=== PATIENT | male | born 1985 ===

== ENCOUNTER 2021-04-01 08:18 | Outpatient (REF) | payer OTHER, SELFPAY ==
--- NOTE | ~2021-04-01 | XR_ITS ---
EXAMINATION: XR HAND, BILATERAL XR PELVIS XR LUMBAR SPINE CLINICAL INFORMATION: Bilateral hand pain, low back pain. COMPARISON: None TECHNIQUE: 3 views each hand. AP pelvis 1 view. Lumbar spine 3 views. FINDINGS: Right Hand: The IP, MCP and CMC joints are maintained normal. Minimal periarticular spurring with loss of joint space DIP joint 5th digit. No bony erosive changes, fracture or soft tissue swelling seen. Left Hand: There is mild periarticular spurring DIP joint 5th digit with minimal loss of joint space. Rest of the IP, MCP and CMC joints are normal. There is no soft tissue swelling seen. AP Pelvis: There is normal symmetry of bilateral SI joints and hip joints. No visible acute fracture, dislocation or lytic process seen. The soft tissues are normal. Lumbar Spine: There is maintained lumbar lordosis. The vertebral heights, alignment and disc heights are normal. No visible acute fracture, dislocation or lytic process seen. The soft tissues are normal. XR/XR hand RT min 3V IMPRESSION: Unremarkable lumbar spine exam. Unremarkable AP pelvis exam. 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
--- NOTE | ~2021-04-01 | XR_ITS ---
EXAMINATION: XR HAND, BILATERAL XR PELVIS XR LUMBAR SPINE CLINICAL INFORMATION: Bilateral hand pain, low back pain. COMPARISON: None TECHNIQUE: 3 views each hand. AP pelvis 1 view. Lumbar spine 3 views. FINDINGS: Right Hand: The IP, MCP and CMC joints are maintained normal. Minimal periarticular spurring with loss of joint space DIP joint 5th digit. No bony erosive changes, fracture or soft tissue swelling seen. Left Hand: There is mild periarticular spurring DIP joint 5th digit with minimal loss of joint space. Rest of the IP, MCP and CMC joints are normal. There is no soft tissue swelling seen. AP Pelvis: There is normal symmetry of bilateral SI joints and hip joints. No visible acute fracture, dislocation or lytic process seen. The soft tissues are normal. Lumbar Spine: There is maintained lumbar lordosis. The vertebral heights, alignment and disc heights are normal. No visible acute fracture, dislocation or lytic process seen. The soft tissues are normal. XR/XR pelvis 1-2V IMPRESSION: Unremarkable lumbar spine exam. Unremarkable AP pelvis exam. 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
--- NOTE | ~2021-04-01 | XR_ITS ---
EXAMINATION: XR HAND, BILATERAL XR PELVIS XR LUMBAR SPINE CLINICAL INFORMATION: Bilateral hand pain, low back pain. COMPARISON: None TECHNIQUE: 3 views each hand. AP pelvis 1 view. Lumbar spine 3 views. FINDINGS: Right Hand: The IP, MCP and CMC joints are maintained normal. Minimal periarticular spurring with loss of joint space DIP joint 5th digit. No bony erosive changes, fracture or soft tissue swelling seen. Left Hand: There is mild periarticular spurring DIP joint 5th digit with minimal loss of joint space. Rest of the IP, MCP and CMC joints are normal. There is no soft tissue swelling seen. AP Pelvis: There is normal symmetry of bilateral SI joints and hip joints. No visible acute fracture, dislocation or lytic process seen. The soft tissues are normal. Lumbar Spine: There is maintained lumbar lordosis. The vertebral heights, alignment and disc heights are normal. No visible acute fracture, dislocation or lytic process seen. The soft tissues are normal. XR/XR hand LT min 3V IMPRESSION: Unremarkable lumbar spine exam. Unremarkable AP pelvis exam. 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
--- NOTE | ~2021-04-01 | XR_ITS ---
EXAMINATION: XR HAND, BILATERAL XR PELVIS XR LUMBAR SPINE CLINICAL INFORMATION: Bilateral hand pain, low back pain. COMPARISON: None TECHNIQUE: 3 views each hand. AP pelvis 1 view. Lumbar spine 3 views. FINDINGS: Right Hand: The IP, MCP and CMC joints are maintained normal. Minimal periarticular spurring with loss of joint space DIP joint 5th digit. No bony erosive changes, fracture or soft tissue swelling seen. Left Hand: There is mild periarticular spurring DIP joint 5th digit with minimal loss of joint space. Rest of the IP, MCP and CMC joints are normal. There is no soft tissue swelling seen. AP Pelvis: There is normal symmetry of bilateral SI joints and hip joints. No visible acute fracture, dislocation or lytic process seen. The soft tissues are normal. Lumbar Spine: There is maintained lumbar lordosis. The vertebral heights, alignment and disc heights are normal. No visible acute fracture, dislocation or lytic process seen. The soft tissues are normal. XR/XR lumbar spine 2-3V IMPRESSION: Unremarkable lumbar spine exam. Unremarkable AP pelvis exam. 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
[2021-04-01 10:35] LABS: MANUAL DIFF FLAG NO
[2021-04-01 10:46] LABS: Basophils Percent Auto 0.8 % (0-2); Eosinophils Absolute Auto 0.3 X10*3/uL (0.0-0.4); Eosinophils Percent Auto 6.4 % (0-4); Hematocrit 46.6 % (42-52); Hemoglobin 15.4 g/dl (14.0-18.0); Imm Gran Abs Auto 0.01 X10*3/uL (0.00-0.03); Imm Gran Pct Auto 0.2 % (0.0-0.4); Lymphocytes Absolute Auto 1.2 X10*3/uL (1.2-4.9); Lymphocytes Percent Auto 24.3 % (20-40); Mean Corpuscular Hemoglobin 27.9 pg (27.0-33.0); Mean Corpuscular Volume 84.4 fL (80-98); Mean Platelet Volume 9.9 fL (9.4-12.4); Monocytes Absolute Auto 0.5 X10*3/uL (0.1-1.2); Monocytes Percent Auto 10.3 % (2-11); Neutrophils Absolute Auto 2.9 X10*3/uL (2.0-8.3); Platelet Count 262 X10*3/uL (160-400); Red Blood Count 5.52 X10*6/uL (4.60-5.80); Red Cell Distribution Width 11.9 % (11.0-16.0)
[2021-04-01 11:03] LABS: Alanine Aminotransferase 35 U/L (0-40); Albumin Level 4.6 g/dL (3.5-5.0); Alkaline Phosphatase 86 U/L (39-117); Anion Gap 14 (12-20); Aspartate Amino Transferase 38 U/L (5-37); Bilirubin Total 0.9 mg/dL (0.0-1.0); Blood Urea Nitrogen 20 mg/dL (9-16); C Reactive Protein 0.36 mg/dL (< or = 0.50); Calcium 9.7 mg/dL (8.4-10.2); Carbon Dioxide 25 mmol/L (22-29); Chloride 105 mmol/L (96-108); Estimated Glomerular Filt Rate > 60; Glucose Random 83 mg/dL (60-115); Potassium 4.4 mmol/L (3.3-5.1); Rheumatoid Factor < 15.0 IU/mL (<15.0); Sodium 140 mmol/L (135-145); Total Protein 8.1 g/dL (6.5-8.0)
[2021-04-01 11:19] LABS: HBc Num1 0.13 S/CO (0.00-0.79); HBsAGNum1 0.25 S/CO (0.00-0.99); Hepatitis A Antibody IgM 0.22 Index (0-0.79); Hepatitis B Core Antibody Nonreactive (Nonreactive); Hepatitis B Surface Antigen Negative (Negative); ~HepC Num1 0.14 S/CO (0.00-0.79); ~Hepatitis A Antibody IgM Nonreactive (Nonreactive); ~Hepatitis C Antibody Nonreactive (Nonreactive)
[2021-04-01 11:22] LABS: HBS Num1 361.76 mIU/mL (0-7.99); ~Hepatitis B Surface Antibody REACTIVE (Nonreactive)
[2021-04-01 11:39] LABS: Erythrocyte Sedimentation Rate 7 MM/HR (0-15)
[2021-04-03 16:36] LABS: Cyclic Citrullinated Peptide <16 UNITS
[2021-04-04 18:25] LABS: TS Negative Control Passed; TS Panel A 0; TS Panel B 0; TS Positive Control Passed; TSpotTB Negative (SeeBelow)
== END 2021-04-01 08:19 | disposition home or self-care (01) ==
LOC: HO.LAB 08:18
PROVIDERS: PCP Nurse Practitioner Family; Visit Provider Student in an Organized Health Care Education/Training Program
DX: Z01.84 Encounter for antibody response examination (principal); Z11.59 Encounter for screening for other viral diseases; Z11.1 Encounter for screening for respiratory tuberculosis; L40.9 Psoriasis, unspecified; M25.50 Pain in unspecified joint
CPT/HCPCS: 36415; 72100; 72170; 73130; 80053; 85025; 85652; 86140; 86200; 86431; 86481; 86704; 86706; 86709; 86803; 87340; 99202

== ENCOUNTER → 2021-04-14 10:57 | Outpatient (BNVA) | payer OTHER, SELFPAY | PROVIDERS: PCP Nurse Practitioner Family; Visit Provider Student in an Organized Health Care Education/Training Program ==